=== PATIENT | female | born 1985 | race Caucasian/White ===

== ENCOUNTER 2016-12-14 16:55 | Emergency (ER) | payer OTHER ==
[2016-12-14 19:40] LABS: BASOPHIL % 0.4 % (0-2); PLATELET COUNT 240 x10^3mcL (130-400); RED CELL DISTRIBUTION WIDTH 12.6 % (11.5-14.5)
[2016-12-14 20:00] VITALS: BP 131/86
[2016-12-14 20:02] LABS: ALBUMIN 3.5 g/dL (3.4-5.0); ALKALINE PHOSPHATASE 39 U/L (46-116); ALT/SGPT 14 U/L (14-59); AST/SGOT 11 U/L (15-37); BILIRUBIN TOTAL 0.2 mg/dL (0.20-1.00); CALCIUM 8.4 mg/dL (8.5-10.1); CARBON DIOXIDE 28.3 mmol/L (21-32); CHLORIDE SERUM 104 mmol/L (98-107); CREATININE SERUM 0.7 mg/dL (0.6-1.0); GFR1 > 60 mL/min; GLUCOSE SERUM 84 mg/dL (74-106); POTASSIUM SERUM 4.1 mmol/L (3.5-5.1); SODIUM SERUM 140 mmol/L (136-145); TOTAL PROTEIN, SERUM 6.8 g/dL (6.4-8.2)
== END 2016-12-14 20:00 | disposition home or self-care (01) ==
LOC: ED 16:55
PROVIDERS: Emergency Medicine
DX: M06.9 Rheumatoid arthritis, unspecified (principal); Z79.899 Other long term (current) drug therapy
CPT/HCPCS: 36415; J1170; J1885; Q0162; Q0163

== ENCOUNTER 2018-11-26 15:27 | Emergency (ER) | payer OTHER ==
[~2018-11-26] VITALS: Ht 170.2 cm; Wt 88.9 kg
[2018-11-26 15:34] VITALS: BP 128/72; Ht 170.2 cm; Wt 88.9 kg
== END 2018-11-26 16:38 | disposition home or self-care (01) ==
LOC: ED 15:27
DX: M79.7 Fibromyalgia (principal); M06.9 Rheumatoid arthritis, unspecified; Z98.84 Bariatric surgery status; Z88.8 Allergy status to other drugs, medicaments and biological substances
CPT/HCPCS: J1100; J1885

== ENCOUNTER 2018-12-22 14:32 | Emergency (ER) | payer OTHER ==
[~2018-12-22] VITALS: Ht 170.2 cm; Wt 87.1 kg
[2018-12-22 14:49] VITALS: Ht 170.2 cm; Wt 87.1 kg
[2018-12-22 16:50] VITALS: BP 112/69
== END 2018-12-22 17:05 | disposition home or self-care (01) ==
LOC: ED 14:32
DX: G89.29 Other chronic pain (principal); M54.5 Low back pain; Z88.8 Allergy status to other drugs, medicaments and biological substances
CPT/HCPCS: J1885

== ENCOUNTER 2019-03-21 08:24 | Emergency (ER) | payer OTHER ==
[~2019-03-21] VITALS: Ht 170.2 cm; Wt 87.3 kg
[2019-03-21 09:59] LABS: BASOPHIL % 0.6 % (0-2); PLATELET COUNT 218 x10^3mcL (130-400); RED CELL DISTRIBUTION WIDTH 13.7 % (11.5-14.5)
[2019-03-21 10:09] LABS: CALCIUM 8.4 mg/dL (8.5-10.1); CARBON DIOXIDE 29.4 mmol/L (21-32); CHLORIDE SERUM 105 mmol/L (98-107); CREATININE SERUM 0.8 mg/dL (0.6-1.0); GFR1 > 60 mL/min; GLUCOSE SERUM 83 mg/dL (74-106); POTASSIUM SERUM 4.1 mmol/L (3.5-5.1); SODIUM SERUM 141 mmol/L (136-145)
[2019-03-21 10:14] LABS: ALBUMIN 3.4 g/dL (3.4-5.0); ALKALINE PHOSPHATASE 42 U/L (46-116); ALT/SGPT 10 U/L (14-59); AST/SGOT 9 U/L (15-37); BILIRUBIN TOTAL 0.42 mg/dL (0.20-1.00); LIPASE 46 IU/L (73-393); TOTAL PROTEIN, SERUM 6.8 g/dL (6.4-8.2)
[2019-03-21 10:24] LABS: UA SPECIFIC GRAVITY 1.015 (1.005-1.035); urine erythrocyte NEGATIVE (NEGATIVE)
[2019-03-21 10:33] LABS: microscopic required? YES
[2019-03-21 14:20] VITALS: BP 129/72
== END 2019-03-21 14:20 | disposition home or self-care (01) ==
LOC: ED 08:24
PROVIDERS: Emergency Medicine
DX: R10.9 Unspecified abdominal pain (principal); R11.2 Nausea with vomiting, unspecified; M06.9 Rheumatoid arthritis, unspecified; M79.7 Fibromyalgia
CPT/HCPCS: J2405; J7030; Q9966; Q9967

== ENCOUNTER 2019-06-14 19:22 | Emergency (ER) | payer OTHER ==
[~2019-06-14] VITALS: Ht 170.2 cm; Wt 91.6 kg
[2019-06-14 19:45] VITALS: Ht 170.2 cm; Wt 91.6 kg
[2019-06-14 21:36] VITALS: BP 121/76
== END 2019-06-14 21:36 | disposition home or self-care (01) ==
LOC: ED 19:22
DX: M54.5 Low back pain (principal); M79.605 Pain in left leg; M79.604 Pain in right leg; M06.9 Rheumatoid arthritis, unspecified; M79.7 Fibromyalgia; Z98.84 Bariatric surgery status; Z88.5 Allergy status to narcotic agent
CPT/HCPCS: J1885

== ENCOUNTER 2019-11-01 15:14 | Emergency (ER) | payer OTHER ==
[~2019-11-01] VITALS: Ht 170.2 cm; Wt 94.8 kg
[2019-11-01 15:20] VITALS: BP 119/80; Ht 170.2 cm; Wt 94.8 kg
== END 2019-11-01 16:23 | disposition home or self-care (01) ==
LOC: ED 15:14
DX: M06.9 Rheumatoid arthritis, unspecified (principal); M79.7 Fibromyalgia; Z88.5 Allergy status to narcotic agent; Z98.82 Breast implant status
CPT/HCPCS: J1885

== ENCOUNTER 2019-12-17 12:54 | Emergency (ER) | payer OTHER ==
[~2019-12-17] VITALS: Ht 170.2 cm; Wt 97.1 kg
[2019-12-17 13:02] VITALS: Ht 170.2 cm; Wt 97.1 kg
[2019-12-17 14:15] VITALS: BP 121/81
== END 2019-12-17 14:15 | disposition home or self-care (01) ==
LOC: ED 12:54
DX: M06.9 Rheumatoid arthritis, unspecified (principal); M79.7 Fibromyalgia; Z98.84 Bariatric surgery status
CPT/HCPCS: J1885